=== PATIENT | female | born 1980 | race Caucasian/White ===

== ENCOUNTER → 2017-07-24 | Outpatient (CLI) | payer MEDICAID ==
[2017-07-24 18:11] LABS: ABSOLUTE EOSINOPHILS # (AUTO) 0.1 10^3/uL (0.0-0.6); ABSOLUTE LYMPHOCYTES (AUTO) 2.1 10^3/uL (0.5-4.7); ABSOLUTE MONOCYTES (AUTO) 0.9 10^3/uL (0.1-1.4); BASOPHILS % (AUTO) 0.1 % (0-2); EOSINOPHILS % (AUTO) 0.6 % (0-6); HEMATOCRIT 30.8 % (36.0-47.0); HEMOGLOBIN 10.7 g/dL (12.0-15.5); LYMPHOCYTES % (AUTO) 17.5 % (13-45); MEAN CORPUSCULAR HEMOGLOBIN 30.9 pg (27.0-33.4); MEAN CORPUSCULAR HGB CONC 34.7 g/dL (32.0-36.0); MEAN CORPUSCULAR VOLUME 89 fl (80-97); MONOCYTES % (AUTO) 7.5 % (3-13); PLATELET COUNT 232 10^3/uL (150-450); RED BLOOD COUNT 3.47 10^6/uL (3.72-5.28); RED CELL DISTRIBUTION WIDTH 12.6 % (11.5-14.0); SEGMENTED NEUTROPHILS % (AUTO) 74.3 % (42-78); TOTAL CELLS COUNTED % (AUTO) 100 %; WHITE BLOOD COUNT 12.2 10^3/uL (4.0-10.5)
[2017-07-24 18:30] LABS: ALANINE AMINOTRANSFERASE 34 U/L (9-52); ALBUMIN 3.3 g/dL (3.5-5.0); ALKALINE PHOSPHATASE 46 U/L (38-126); ANION GAP 8 (5-19); ASPARTATE AMINO TRANSFERASE 24 U/L (14-36); BLOOD UREA NITROGEN 12 mg/dL (7-20); CALCIUM 9.3 mg/dL (8.4-10.2); CARBON DIOXIDE 24 mmol/L (22-30); CHLORIDE 104 mmol/L (98-107); GLUCOSE 97 mg/dL (75-110); LDH 313 U/L (313-618); POTASSIUM 3.9 mmol/L (3.6-5.0); SODIUM 136.4 mmol/L (137-145); URIC ACID 4.1 mg/dL (2.5-7.0)
[2017-07-24 18:31] LABS: BILIRUBIN,DIRECT 0.2 mg/dL (0.0-0.4); BILIRUBIN,TOTAL < 0.1 mg/dL (0.2-1.3)
[2017-07-24 19:08] LABS: URINE PROTEIN 16.1 mg/dL (<12)
[2017-07-24 19:13] LABS: 24 HOUR URINE PROTEIN RESULT 469 mg/day (42-225)
[2017-07-24 19:55] LABS: CREATININE 0.52 mg/dL (0.52-1.25)
== END ==
LOC: OD 17:05
PROVIDERS: ATTEND Advanced Practice Midwife
DX: O13.9 Gestational [pregnancy-induced] hypertension without significant proteinuria, unspecified trimester (principal); Z13.0 Encounter for screening for diseases of the blood and blood-forming organs and certain disorders involving the immune mechanism; Z13.1 Encounter for screening for diabetes mellitus
CPT/HCPCS: 36415; 80053; 82575; 83615; 84156; 84550; 85025

== ENCOUNTER 2017-08-27 10:46 | Emergency (ER) | payer MEDICAID ==
[2017-08-27] MEDS ORDERED: METOCLOPRAMIDE HCL INJ/PF 10 MG/2 ML SDV IV ONE (11:23)
[2017-08-27] MEDS ORDERED: NORMAL SALINE 1000 ML 1,000 ML IV ONE (11:23)
[2017-08-27] MEDS ORDERED: DIPHENHYDRAMINE HCL 50 MG/ML VIAL IV ONE (11:23)
--- NOTE | 2017-08-27 11:25 | ER Document Report ---
ED Medical Screen (RME) - General Chief Complaint: Dizziness Stated Complaint: DIZZINESS Time Seen by Provider: 08/27/17 11:22 TRAVEL OUTSIDE OF THE [place] IN LAST 30 DAYS: No - HPI Notes: 08/27/17 11:24 Patient coming in with twins G5 with 3 kids at home presents today for acute onset of dizziness and nausea vomiting. Patient states history of preeclampsia. Patient proximally 9 weeks [facility] 08/27/17 11:25 No abdominal pain no vaginal spotting or bleeding or discharge - Related Data Allergies/Adverse Reactions: acetaminophen [From Percocet] Allergy (Verified 08/27/17 10:49) hydrocodone [From Vicodin] Allergy (Verified 08/27/17 10:49) oxycodone [From Percocet] Allergy (Verified 08/27/17 10:49) Past Medical History - Social History Chew tobacco use (# tins/day): No Frequency of alcohol use: None Drug Abuse: None Renal/ Medical History: Reports: Hx Kidney Stones. Denies: Hx Peritoneal Dialysis Review of Systems - Review of Systems Constitutional: Other - dizziness Gastrointestinal: Nausea Physical Exam - Vital signs Vitals: Temp Pulse Resp BP Pulse Ox 99.0 F 99 24 H 134/76 H 98 08/27/17 10:52 08/27/17 10:52 08/27/17 10:52 08/27/17 10:52 08/27/17 10:52 - Respiratory Respiratory status: No respiratory distress Chest status: Nontender Breath sounds: Normal Chest palpation: Normal Course - Vital Signs Vital signs: Temp Pulse Resp BP Pulse Ox 99.0 F 99 24 H 134/76 H 98 08/27/17 10:52 08/27/17 10:52 08/27/17 10:52 08/27/17 10:52 08/27/17 10:52
[2017-08-27] MEDS ORDERED: DIAZEPAM INJ 10 MG/2 ML DISP.SYRIN IV ONE (12:27)
--- NOTE | 2017-08-27 12:42 | ER Document Report ---
ED General - General Chief Complaint: Dizziness Stated Complaint: DIZZINESS Time Seen by Provider: 08/27/17 11:22 TRAVEL OUTSIDE OF THE [place] IN LAST 30 DAYS: No - HPI Notes: 36-year-old female 19 weeks who presents with vertigo symptoms. Patient woke this morning and had a sensation of motion. She developed some nausea and occasional vomiting. Limited when she moves her head. She has had no recent URI symptoms. No headache, no trauma. She is a history of preeclampsia with previous pregnancies but is unexplained symptoms with this . Again denies headache. No fever, chills or sweats. No chest pain, no difficulty breathing. No numbness or tingling. No other neurologic complaints. No other modifying factors, no other associated symptoms, no other provocative or palliative factors. - Related Data Allergies/Adverse Reactions: acetaminophen [From Percocet] Allergy (Verified 08/27/17 10:49) hydrocodone [From Vicodin] Allergy (Verified 08/27/17 10:49) oxycodone [From Percocet] Allergy (Verified 08/27/17 10:49) Past Medical History - Social History Smoking Status: Current Every Day Smoker Chew tobacco use (# tins/day): No Frequency of alcohol use: None Drug Abuse: None Family History: Reviewed & Not Pertinent Patient has suicidal ideation: No Patient has homicidal ideation: No - Medical History Medical History: Other - Includes current , previous history of preeclampsia Renal/ Medical History: Reports: Hx Kidney Stones. Denies: Hx Peritoneal Dialysis Review of Systems - Review of Systems Notes: Review of systems as in the history of present illness, otherwise negative. Physical Exam - Vital signs Vitals: Temp Pulse Resp BP Pulse Ox 99.0 F 99 24 H 134/76 H 98 08/27/17 10:52 08/27/17 10:52 08/27/17 10:52 08/27/17 10:52 08/27/17 10:52 - Notes Notes: General: Well developed, well nourished. HEENT: Normocephalic, atraumatic. PEERL. No conjunctival injection. Neck: Supple, no significant adenopathy. No meningismus. Chest: Clear bilaterally, good air entry. Abdomen: Soft, non-tender, nondistended. Back: Non-tender. Normal ROM Extremities: No cyanosis, clubbing or edema. Vascular: Symmetric peripheral pulses, normal capillary refill. Skin: No significant rash. No petechiae or purpura. Motor: Normal tone and power. Symmetric. Neurologic: Alert and oriented to person place and time. Cranial nerves II-12 are intact. Sensation intact and symmetric in the upper and lower extremities. No cerebellar findings including finger-nose testing. No clonus. Gait normal. Funduscopic exam shows crisp disc margins, no evidence of papilledema. Course - Re-evaluation Re-evalutation: 08/27/17 12:41 Well-appearing 36-year-old female presents with a story very suggestive of peripheral vertigo, no high-risk features or other findings that would suggest a central cause. I do not believe this is consistent with preeclampsia. She has no headache, no hyperreflexia, no visual changes. I am going to treat her with a single dose of IV Valium, antiemetics of already been given. I do not believe laboratory evaluation will be helpful at this point. Will recheck blood pressure, reassess. On reevaluation, the patient is resting comfortably, markedly improved. Blood pressure is 113/70. She is discharged home with prescription for meclizine, close outpatient follow-up. - Vital Signs Vital signs: Temp Pulse Resp BP Pulse Ox 98.3 F 86 24 H 121/58 L 98 08/27/17 13:39 08/27/17 13:39 08/27/17 10:52 08/27/17 13:39 08/27/17 13:39 - Laboratory Result Diagrams: 08/27/17 11:57 08/27/17 11:57 Discharge - Discharge Clinical Impression: Vertigo Condition: Good Disposition: HOME, SELF-CARE Instructions: Meclizine (OM), Vertigo (OM) Additional Instructions: See your primary care doctor over the next couple of days
[2017-08-27 13:46] VITALS: BP 121/58
== END 2017-08-27 13:46 | disposition home or self-care (01) ==
LOC: ER 10:46
DX: R42 Dizziness and giddiness (principal); R11.2 Nausea with vomiting, unspecified; Z3A.19 19 weeks gestation of pregnancy
CPT/HCPCS: 99284; 96361; 96374; 96375; J3360; J1200; J2765; J7030

== ENCOUNTER 2017-09-30 13:04 | Outpatient (CLI) | payer MEDICAID ==
[2017-09-30 13:44] LABS: ABSOLUTE EOSINOPHILS # (AUTO) 0.1 10^3/uL (0.0-0.6); ABSOLUTE LYMPHOCYTES (AUTO) 2.1 10^3/uL (0.5-4.7); ABSOLUTE MONOCYTES (AUTO) 0.9 10^3/uL (0.1-1.4); ABSOLUTE NEUT (AUTO) 10.6 10^3/uL (1.7-8.2); BASOPHILS % (AUTO) 0.1 % (0-2); EOSINOPHILS % (AUTO) 0.7 % (0-6); HEMATOCRIT 28.8 % (36.0-47.0); HEMOGLOBIN 10.3 g/dL (12.0-15.5); LYMPHOCYTES % (AUTO) 15.5 % (13-45); MEAN CORPUSCULAR HEMOGLOBIN 31.5 pg (27.0-33.4); MEAN CORPUSCULAR HGB CONC 35.6 g/dL (32.0-36.0); MEAN CORPUSCULAR VOLUME 88 fl (80-97); MONOCYTES % (AUTO) 6.7 % (3-13); PLATELET COUNT 235 10^3/uL (150-450); RED BLOOD COUNT 3.26 10^6/uL (3.72-5.28); RED CELL DISTRIBUTION WIDTH 12.6 % (11.5-14.0); TOTAL CELLS COUNTED % (AUTO) 100 %; WHITE BLOOD COUNT 13.7 10^3/uL (4.0-10.5)
[2017-09-30 14:04] LABS: ALANINE AMINOTRANSFERASE 25 U/L (9-52); ALBUMIN 3.5 g/dL (3.5-5.0); ALKALINE PHOSPHATASE 65 U/L (38-126); ANION GAP 12 (5-19); ASPARTATE AMINO TRANSFERASE 22 U/L (14-36); BILIRUBIN,DIRECT 0.1 mg/dL (0.0-0.4); BILIRUBIN,TOTAL 0.1 mg/dL (0.2-1.3); BLOOD UREA NITROGEN 9 mg/dL (7-20); CALCIUM 10.5 mg/dL (8.4-10.2); CARBON DIOXIDE 24 mmol/L (22-30); CHLORIDE 103 mmol/L (98-107); GLUCOSE 92 mg/dL (75-110); LDH 317 U/L (313-618); POTASSIUM 3.3 mmol/L (3.6-5.0); SODIUM 138.5 mmol/L (137-145); TOTAL PROTEIN 6.2 g/dL (6.3-8.2); URIC ACID 5.8 mg/dL (2.5-7.0)
--- NOTE | 2017-09-30 14:49 | L&D Progress Notes ---
PROGRESS NOTES Datetime Report Generated by CPN: 09/30/2017 14:49 PROGRESS NOTE Comment: BP's normal, K = 3.3, D/W Dr. Watson, no supplement, increase K enriched foods, tomatoes, potatoes, bananas, repeat in 1 week SIGNATURE SIGNATURE: [id number] Assignment: Marcial Watson MD Signature: with User ID: [email or web address] : with User ID: [email or web address]
[2017-09-30 14:50] LABS: UR PRO/CREAT RATIO RESULT 0.7 mg/mg (0.0-0.2); URINE CREATININE 125.2 mg/dL (16-327); URINE PROTEIN 83.8 mg/dL (<12)
== END 2017-09-30 15:04 | disposition home or self-care (01) ==
LOC: LC 13:04
PROVIDERS: ATTEND Obstetrics & Gynecology Gynecology
PROC: 4A1HXCZ Monitoring of Products of Conception, Cardiac Rate, External Approach (ICD-10-PCS; principal; 2017-09-30)
DX: O09.522 Supervision of elderly multigravida, second trimester (principal); O99.282 Endocrine, nutritional and metabolic diseases complicating pregnancy, second trimester; E87.6 Hypokalemia; Z3A.24 24 weeks gestation of pregnancy
CPT/HCPCS: 36415; 80053; 82570; 83615; 84156; 84550; 85025

== ENCOUNTER 2017-10-14 16:41 | Outpatient (CLI) | payer MEDICAID ==
[2017-10-14] MEDS ORDERED: BETAMET ACET/BETAMET NA INJ 6 MG/1 ML IM ONE (16:51)
[2017-10-14] MEDS ORDERED: BETAMET ACET/BETAMET NA INJ 6 MG/1 ML ONE (16:56)
[2017-10-14 17:34] LABS: APPEARANCE,URINE SLIGHTLY-CLOUDY; BILIRUBIN,URINE NEGATIVE (NEGATIVE); COLOR,URINE YELLOW; GLUCOSE, URINE NEGATIVE (NEGATIVE); KETONES,URINE NEGATIVE (NEGATIVE); LEUKOCYTE ESTERASE,URINE NEGATIVE (NEGATIVE); NITRITE,URINE NEGATIVE (NEGATIVE); PROTEIN,URINE 100 mg/dL (NEGATIVE); URINE SPECIFIC GRAVITY 1.012; UROBILINOGEN,URINE NEGATIVE mg/dL (<2.0)
[2017-10-14 17:44] LABS: ABSOLUTE EOSINOPHILS # (AUTO) 0.1 10^3/uL (0.0-0.6); ABSOLUTE LYMPHOCYTES (AUTO) 2.6 10^3/uL (0.5-4.7); ABSOLUTE MONOCYTES (AUTO) 1.3 10^3/uL (0.1-1.4); ABSOLUTE NEUT (AUTO) 10.1 10^3/uL (1.7-8.2); BASOPHILS % (AUTO) 0.2 % (0-2); EOSINOPHILS % (AUTO) 0.6 % (0-6); HEMATOCRIT 26.9 % (36.0-47.0); HEMOGLOBIN 9.5 g/dL (12.0-15.5); LYMPHOCYTES % (AUTO) 18.2 % (13-45); MEAN CORPUSCULAR HEMOGLOBIN 31.5 pg (27.0-33.4); MEAN CORPUSCULAR HGB CONC 35.4 g/dL (32.0-36.0); MEAN CORPUSCULAR VOLUME 89 fl (80-97); MONOCYTES % (AUTO) 9.1 % (3-13); PLATELET COUNT 223 10^3/uL (150-450); RED BLOOD COUNT 3.02 10^6/uL (3.72-5.28); RED CELL DISTRIBUTION WIDTH 12.2 % (11.5-14.0); SEGMENTED NEUTROPHILS % (AUTO) 71.9 % (42-78); TOTAL CELLS COUNTED % (AUTO) 100 %; WHITE BLOOD COUNT 14.1 10^3/uL (4.0-10.5)
[2017-10-14 18:01] LABS: ALANINE AMINOTRANSFERASE 29 U/L (9-52); ALBUMIN 3.3 g/dL (3.5-5.0); ALKALINE PHOSPHATASE 65 U/L (38-126); ANION GAP 8 (5-19); ASPARTATE AMINO TRANSFERASE 27 U/L (14-36); BILIRUBIN,DIRECT 0.3 mg/dL (0.0-0.4); BILIRUBIN,TOTAL 0.3 mg/dL (0.2-1.3); BLOOD UREA NITROGEN 11 mg/dL (7-20); CALCIUM 9.5 mg/dL (8.4-10.2); CARBON DIOXIDE 28 mmol/L (22-30); CHLORIDE 102 mmol/L (98-107); GLUCOSE 76 mg/dL (75-110); LDH 337 U/L (313-618); POTASSIUM 3.2 mmol/L (3.6-5.0); SODIUM 138.2 mmol/L (137-145); TOTAL PROTEIN 5.9 g/dL (6.3-8.2); URIC ACID 6.5 mg/dL (2.5-7.0)
[2017-10-14 18:06] LABS: UR PRO/CREAT RATIO RESULT 0.7 mg/mg (0.0-0.2); URINE CREATININE 96.3 mg/dL (16-327); URINE PROTEIN 68.9 mg/dL (<12)
[2017-10-14 18:17] LABS: URINE AMPHETAMINES SCREEN NEGATIVE; URINE BARBITURATES SCREEN NEGATIVE; URINE BENZODIAZEPINES SCREEN NEGATIVE; URINE COCAINE SCREEN NEGATIVE; URINE MARIJUANA (THC) SCREEN NEGATIVE; URINE METHADONE SCREEN NEGATIVE; URINE PHENCYCLIDINE SCREEN NEGATIVE
== END 2017-10-14 18:35 | disposition home or self-care (01) ==
LOC: LC 16:41
PROVIDERS: ATTEND Student in an Organized Health Care Education/Training Program
PROC: 4A1HXCZ Monitoring of Products of Conception, Cardiac Rate, External Approach (ICD-10-PCS; principal; 2017-10-14)
DX: O09.522 Supervision of elderly multigravida, second trimester (principal); O16.2 Unspecified maternal hypertension, second trimester; Z3A.26 26 weeks gestation of pregnancy
CPT/HCPCS: 59899; 96372; 36415; 83615; 84156; 84550; 82570; 85025; 80053; 81001; 80307; J0702

== ENCOUNTER 2017-11-04 14:24 | Outpatient (CLI) | payer MEDICAID ==
[2017-11-04 15:23] LABS: ABSOLUTE BASOPHILS # (AUTO) 0.1 10^3/uL (0.0-0.2); ABSOLUTE EOSINOPHILS # (AUTO) 0.1 10^3/uL (0.0-0.6); ABSOLUTE LYMPHOCYTES (AUTO) 2.4 10^3/uL (0.5-4.7); ABSOLUTE NEUT (AUTO) 9.5 10^3/uL (1.7-8.2); BASOPHILS % (AUTO) 0.5 % (0-2); EOSINOPHILS % (AUTO) 0.4 % (0-6); HEMOGLOBIN 10.1 g/dL (12.0-15.5); LYMPHOCYTES % (AUTO) 18.7 % (13-45); MEAN CORPUSCULAR HEMOGLOBIN 32.4 pg (27.0-33.4); MEAN CORPUSCULAR HGB CONC 35.9 g/dL (32.0-36.0); MEAN CORPUSCULAR VOLUME 90 fl (80-97); MONOCYTES % (AUTO) 7.6 % (3-13); PLATELET COUNT 221 10^3/uL (150-450); SEGMENTED NEUTROPHILS % (AUTO) 72.8 % (42-78); TOTAL CELLS COUNTED % (AUTO) 100 %
[2017-11-04 15:39] LABS: APPEARANCE,URINE SLIGHTLY-CLOUDY; BILIRUBIN,URINE NEGATIVE (NEGATIVE); COLOR,URINE YELLOW; GLUCOSE, URINE NEGATIVE (NEGATIVE); KETONES,URINE NEGATIVE (NEGATIVE); LEUKOCYTE ESTERASE,URINE NEGATIVE (NEGATIVE); NITRITE,URINE NEGATIVE (NEGATIVE); PROTEIN,URINE 100 mg/dL (NEGATIVE); URINE SPECIFIC GRAVITY 1.011; UROBILINOGEN,URINE NEGATIVE mg/dL (<2.0)
[2017-11-04 15:40] LABS: ALANINE AMINOTRANSFERASE 22 U/L (9-52); ALBUMIN 3.1 g/dL (3.5-5.0); ALKALINE PHOSPHATASE 87 U/L (38-126); ANION GAP 9 (5-19); ASPARTATE AMINO TRANSFERASE 23 U/L (14-36); BILIRUBIN,DIRECT 0.2 mg/dL (0.0-0.4); BILIRUBIN,TOTAL 0.2 mg/dL (0.2-1.3); BLOOD UREA NITROGEN 8 mg/dL (7-20); CALCIUM 9.4 mg/dL (8.4-10.2); CARBON DIOXIDE 26 mmol/L (22-30); CHLORIDE 104 mmol/L (98-107); GLUCOSE 86 mg/dL (75-110); POTASSIUM 3.5 mmol/L (3.6-5.0); SODIUM 139.1 mmol/L (137-145); TOTAL PROTEIN 5.8 g/dL (6.3-8.2); URIC ACID 5.8 mg/dL (2.5-7.0)
[2017-11-04 15:42] LABS: URINE AMPHETAMINES SCREEN NEGATIVE; URINE BARBITURATES SCREEN NEGATIVE; URINE BENZODIAZEPINES SCREEN NEGATIVE; URINE COCAINE SCREEN NEGATIVE; URINE MARIJUANA (THC) SCREEN NEGATIVE; URINE METHADONE SCREEN NEGATIVE; URINE PHENCYCLIDINE SCREEN NEGATIVE
[2017-11-04 15:51] LABS: UR PRO/CREAT RATIO RESULT 1.2 mg/mg (0.0-0.2); URINE CREATININE 81.7 mg/dL (16-327); URINE PROTEIN 98.3 mg/dL (<12)
== END 2017-11-04 16:38 | disposition home or self-care (01) ==
LOC: LC 14:24
PROVIDERS: ATTEND Obstetrics & Gynecology
PROC: 4A1HXCZ Monitoring of Products of Conception, Cardiac Rate, External Approach (ICD-10-PCS; principal; 2017-11-04)
DX: O13.3 Gestational [pregnancy-induced] hypertension without significant proteinuria, third trimester (principal); Z3A.29 29 weeks gestation of pregnancy
CPT/HCPCS: 36415; 80053; 80307; 81001; 82570; 83615; 84156; 84550; 85025

== ENCOUNTER 2017-11-17 21:18 | Outpatient (CLI) | payer MEDICAID ==
[2017-11-17 21:58] LABS: APPEARANCE,URINE CLEAR; BILIRUBIN,URINE NEGATIVE (NEGATIVE); COLOR,URINE YELLOW; GLUCOSE, URINE NEGATIVE (NEGATIVE); KETONES,URINE NEGATIVE (NEGATIVE); LEUKOCYTE ESTERASE,URINE SMALL (NEGATIVE); NITRITE,URINE NEGATIVE (NEGATIVE); PROTEIN,URINE 100 mg/dL (NEGATIVE); URINE SPECIFIC GRAVITY 1.008; UROBILINOGEN,URINE NEGATIVE mg/dL (<2.0)
[2017-11-17 21:59] LABS: URINE AMPHETAMINES SCREEN NEGATIVE; URINE BARBITURATES SCREEN NEGATIVE; URINE BENZODIAZEPINES SCREEN NEGATIVE; URINE COCAINE SCREEN NEGATIVE; URINE MARIJUANA (THC) SCREEN NEGATIVE; URINE METHADONE SCREEN NEGATIVE; URINE PHENCYCLIDINE SCREEN NEGATIVE
== END 2017-11-17 23:02 | disposition home or self-care (01) ==
LOC: LC 21:18
PROVIDERS: ATTEND Obstetrics & Gynecology
PROC: 4A1HXCZ Monitoring of Products of Conception, Cardiac Rate, External Approach (ICD-10-PCS; principal; 2017-11-17)
DX: O47.03 False labor before 37 completed weeks of gestation, third trimester (principal); Z3A.31 31 weeks gestation of pregnancy
CPT/HCPCS: 80307; 81001

== ENCOUNTER 2017-11-23 19:57 | Outpatient (CLI) | payer MEDICAID ==
[2017-11-23 20:40] LABS: APPEARANCE,URINE SLIGHTLY-CLOUDY; BILIRUBIN,URINE NEGATIVE (NEGATIVE); COLOR,URINE YELLOW; GLUCOSE, URINE NEGATIVE (NEGATIVE); KETONES,URINE NEGATIVE (NEGATIVE); LEUKOCYTE ESTERASE,URINE LARGE (NEGATIVE); NITRITE,URINE NEGATIVE (NEGATIVE); PROTEIN,URINE 100 mg/dL (NEGATIVE); URINE SPECIFIC GRAVITY 1.011; UROBILINOGEN,URINE NEGATIVE mg/dL (<2.0)
[2017-11-23 20:52] LABS: URINE AMPHETAMINES SCREEN NEGATIVE; URINE BARBITURATES SCREEN NEGATIVE; URINE BENZODIAZEPINES SCREEN NEGATIVE; URINE COCAINE SCREEN NEGATIVE; URINE MARIJUANA (THC) SCREEN NEGATIVE; URINE METHADONE SCREEN NEGATIVE; URINE PHENCYCLIDINE SCREEN NEGATIVE
[2017-11-23] MEDS ORDERED: RINGERS SOLUTION,LACTATED 1,000 ML IV ONE (21:09)
[2017-11-23] MEDS ORDERED: LABETALOL HCL 200 MG TABLET PO ONE (21:09)
[2017-11-23] MEDS ORDERED: LABETALOL HCL 200 MG TABLET ONE (21:13)
[2017-11-23] MEDS ORDERED: PROMETHAZINE HCL INJ 25 MG/1 ML VIAL IV ONE (21:19)
[2017-11-23] MEDS ORDERED: HYDROXYZINE PAMOATE 50 MG CAPSULE PO ONE (21:19)
[2017-11-23] MEDS ORDERED: PROMETHAZINE HCL INJ 25 MG/1 ML VIAL ONE (21:22)
[2017-11-23] MEDS ORDERED: HYDROXYZINE PAMOATE 50 MG CAPSULE ONE (21:22)
== END 2017-11-23 22:49 | disposition home or self-care (01) ==
LOC: LC 19:57 → EDSTATUS 01-19 19:56
PROVIDERS: ATTEND Obstetrics & Gynecology
PROC: 4A1HXCZ Monitoring of Products of Conception, Cardiac Rate, External Approach (ICD-10-PCS; principal; 2017-11-23)
DX: O47.1 False labor at or after 37 completed weeks of gestation (principal); Z3A.39 39 weeks gestation of pregnancy
CPT/HCPCS: 59025; 87086; 81001; 80307; J3490 ×2; J2550

== ENCOUNTER 2017-12-02 13:13 | Inpatient (IN) | payer MEDICAID ==
--- NOTE | 2017-12-02 14:13 | Non Stress Test Report ---
Non Stress Test Datetime Report Generated by CPN: 12/02/2017 14:12 DEMOGRAPHIC EGA NST: 33.1 INDICATION Indication for Study: Other Indication for Study (NST) Other: lc/sent from med for chest pain MONITORING Monitor Explained: Monitor Explained; Test Explained; Patient Verbalized Understanding Time on Monitor: 12/02/2017 13:35 Time off Monitor: 12/02/2017 14:10 NST Duration: 35 NST INTERVENTIONS NST Interventions: PO Hydration; Reposition Patient Physician Notified NST: Dr Nascimento BABY A: [id number] BABY A Movement : Present Contraction Frequency : 0 FHR Baseline : 140 Accelerations : 15X15 Decelerations : None Variability : Moderate 6-25bpm NST Review: Meets Criteria for Reactive NST NST Review and Verified By : NELI Robles Results: Reactive BABY B Movement: Present FHR Baseline: 140 Accelerations: 15X15 Decelerations: None Variability: Moderate 6-25bpm NST Review: Meets Criteria for Reactive NST NST Results: Reactive NST REPORT Report Trigger: Send Report
[2017-12-02 14:33] LABS: APPEARANCE,URINE CLOUDY; BILIRUBIN,URINE NEGATIVE (NEGATIVE); GLUCOSE, URINE NEGATIVE (NEGATIVE); KETONES,URINE NEGATIVE (NEGATIVE); LEUKOCYTE ESTERASE,URINE LARGE (NEGATIVE); NITRITE,URINE NEGATIVE (NEGATIVE); PROTEIN,URINE 100 mg/dL (NEGATIVE); URINE SPECIFIC GRAVITY 1.013; UROBILINOGEN,URINE NEGATIVE mg/dL (<2.0)
[2017-12-02 14:34] LABS: COLOR,URINE YELLOW
[2017-12-02 14:44] LABS: URINE AMPHETAMINES SCREEN NEGATIVE; URINE BARBITURATES SCREEN NEGATIVE; URINE BENZODIAZEPINES SCREEN NEGATIVE; URINE COCAINE SCREEN NEGATIVE; URINE MARIJUANA (THC) SCREEN NEGATIVE; URINE METHADONE SCREEN NEGATIVE; URINE PHENCYCLIDINE SCREEN NEGATIVE
[2017-12-02 14:46] LABS: URINE CREATININE 117.5 mg/dL (16-327)
[2017-12-02 14:54] LABS: UR PRO/CREAT RATIO RESULT 2.3 mg/mg (0.0-0.2)
[2017-12-02 14:58] LABS: ABSOLUTE EOSINOPHILS # (AUTO) 0.1 10^3/uL (0.0-0.6); ABSOLUTE LYMPHOCYTES (AUTO) 2.3 10^3/uL (0.5-4.7); BASOPHILS % (AUTO) 0.4 % (0-2); EOSINOPHILS % (AUTO) 0.5 % (0-6); HEMATOCRIT 31.6 % (36.0-47.0); LYMPHOCYTES % (AUTO) 20.5 % (13-45); MEAN CORPUSCULAR HEMOGLOBIN 31.9 pg (27.0-33.4); MEAN CORPUSCULAR HGB CONC 34.6 g/dL (32.0-36.0); MEAN CORPUSCULAR VOLUME 92 fl (80-97); MONOCYTES % (AUTO) 8.5 % (3-13); PLATELET COUNT 173 10^3/uL (150-450); RED BLOOD COUNT 3.43 10^6/uL (3.72-5.28); SEGMENTED NEUTROPHILS % (AUTO) 70.1 % (42-78); TOTAL CELLS COUNTED % (AUTO) 100 %; WHITE BLOOD COUNT 11.3 10^3/uL (4.0-10.5)
[2017-12-02] MEDS ORDERED: ACETAMINOPHEN 325 MG TABLET ONE ×2 (15:05→15:10)
[2017-12-02] MEDS ORDERED: ACETAMINOPHEN 325 MG TABLET PO ONE (15:05)
[2017-12-02 15:25] LABS: ALBUMIN 2.8 g/dL (3.5-5.0); ANION GAP 7 (5-19); BLOOD UREA NITROGEN 9 mg/dL (7-20); CALCIUM 8.9 mg/dL (8.4-10.2); CARBON DIOXIDE 24 mmol/L (22-30); CHLORIDE 105 mmol/L (98-107); GLUCOSE 71 mg/dL (75-110); POTASSIUM 3.9 mmol/L (3.6-5.0); SODIUM 135.9 mmol/L (137-145); TOTAL PROTEIN 5.4 g/dL (6.3-8.2); URIC ACID 5.8 mg/dL (2.5-7.0)
[2017-12-02 15:26] LABS: ALANINE AMINOTRANSFERASE 20 U/L (9-52); ALKALINE PHOSPHATASE 114 U/L (38-126); ASPARTATE AMINO TRANSFERASE 28 U/L (14-36); BILIRUBIN,DIRECT 0.3 mg/dL (0.0-0.4); BILIRUBIN,TOTAL 0.3 mg/dL (0.2-1.3)
[2017-12-02] MEDS ORDERED: BETAMET ACET/BETAMET NA INJ 6 MG/1 ML ONE (16:41)
[2017-12-02] MEDS ORDERED: BETAMET ACET/BETAMET NA INJ 6 MG/1 ML IM ONE (16:41)
[2017-12-02] MEDS ORDERED: BUTALB/ACETAMINOPHEN/CAFFEINE 1 TAB EACH ONE (16:42)
[2017-12-02] MEDS ORDERED: BUTALB/ACETAMINOPHEN/CAFFEINE 1 TAB EACH PO ONE (16:42)
--- NOTE | 2017-12-02 16:59 | Admission Physical ---
Datetime Report Generated by CPN: 12/02/2017 16:59 CURRENT ADMISSION Chief Complaint: Signs/Symptoms Gestational HTN Indication for Induction: Not Applicable Admit Impression : , Intrauterine ; No Active Labor; Intact Membranes Admit Plan: Admit to Unit; Observation/Evaluation ALLERGIES Medication Allergies: Yes Medication Allergies: hydrocodone (10/14/2017); oxycodone (10/14/2017) Latex: No Latex Allergies OBSTETRICAL HISTORY EDC: 01/19/2018 00:00 : 5 Para: 4 Term: 4 : 0 SAB: 0 IAB: 0 Ectopic: 0 Livin Cesareans: 1 VBACs: 0 Multiple Births: 0 Gestational Diabetes: No Rh Sensitization: No Incompetent Cervix: No LATOYA: No Infertility: No ART Treatment: No Uterine Anomaly: No IUGR: No Hx Previous C/S: No Macrosomia: Yes Hx Loss/Stillborn: No PIH: Yes Hx : No Placenta Previa/Abruption: No Depression/PP Depression: No PTL/PROM: No Post Hemorrhage: No Current Procedures: Ultrasound; NST Obstetrical History Comments: G1: 1997 full term [id number] G2: 2000 full term 6lbs 7ozs G3: 2002 full term 7lbs 12 ozs G4: 2008 full term 8lbz 8oz C/S BREECH G5: current SEE RECORDS Alcohol: No Marijuana : No Cocaine: No Other Illicit Drugs: No Cigarettes: Current Some Day Smoker. 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 Heart Disease: No Hosp/Surgery: Yes Autoimmune Disorder: No Anesthetic Complications: No Kidney Disease: Yes Abnormal Pap Smear: No Neuro/Epilepsy: No Psychiatric Disorders: No Other Medical Diseases: No Hepatitis/Liver Disease: No Significant Family History: No Varicosities/Phlebitis: No Trauma/Violence : No Thyroid Dysfunction: No Medical History Comments: kidney stones, CHTN, GALLBLADDER REMOVED, C SECTION X1, DENTAL CARIES INFECTIOUS HISTORY Gonorrhea: No Genital Herpes: No Chlamydia: No Tuberculosis: No Syphilis: No Hepatitis: No HIV/AIDS Exposure: No Rash or Viral Illness: No HPV: No PHYSICAL EXAM General: Normal HEENT: Normal Neurologic: Normal Thyroid: Deferred Heart: Normal Lungs: Normal Breast: Deferred Back: Normal Abdomen: Normal Genitourinary Exam: Normal Extremities: Normal DTRs: Normal Pelvic Type: Adequate Vital Signs: Reviewed FETUS A EGA: 33.1 Monitoring: External US FHR- Baseline: 155 Variability: Moderate 6-25bpm Accelerations: 15X15 Decelerations: None Presentation: Vertex Admit Comment: 37yo at 33+1ega with DC/DA TIUP. Baby A 2047g, Baby B 2742g. Vtx/vtx. Pt with known CHTN and superimposed PreE. p:C ratio now 2.3 - will admit for monitoring and deliver for severe features. BPP 8/8 x 2. Twin A with proir imaging suspicious of VSD. Denies CP/SOB but reports increased swelling of LE. Tylenol given - will try fioricet for JI. If unable to improve JI and/or BPs uncontrolled plan for deivery as recommended by MFM. BMZ complete - give booster now. She desires repeat C/S with BTL. She is 100% that she has completed childbearing and desires permanent sterilization. Dr. Vickers aware FETUS B Monitoring: External US PLANS FOR LABOR AND DELIVERY Pain Management: Epidural; Spinal Feeding Preference: Formula Benefit of Breast Feed Discussed: Yes Circumcision: Yes INFORMED CONSENT Informed Consent Obtained: Section Delivery; Sterilization; Risks, Benefits and Alternatives Discussed Signature: with User ID: [email or web address]
[2017-12-02] MEDS ORDERED: RINGERS SOLUTION,LACTATED 1,000 ML IV PRN (17:18)
--- NOTE | 2017-12-02 18:34 | L&D Progress Notes ---
PROGRESS NOTES Datetime Report Generated by CPN: 12/02/2017 18:33 PROGRESS NOTE Impression: Eclampsia - Severe Plan: Deliver- Section Informed Consent Obtained: Section Delivery; Sterilization; Risks, Benefits and Alternatives Discussed Vital Signs : Reviewed Comment: Mild range BP's. however, JI now worsened and blurry vision worsened despite IVF and Despite tylenol and Fioricet. Pt with CHTN with Superimposed PreE and severe features with persistent neurological symptoms despite medications. Reviewed with patient and family re: concern and need for delivery. Case D/w Dr. Zazueta and Dr. Zazueta with [facility] recommended delivery for severe PreE (neurological features). Case also d/w Dr. Chacon who agrees with plan of care. FETUS A Presentation: Vertex SIGNATURE SIGNATURE: [id number];[id number];[id number] SIGNATURE: [id number];[id number];[id number] SIGNATURE: [id number];[id number] Signature: with User ID: [email or web address]
[2017-12-02 18:38] LABS: HEMATOCRIT 32.7 % (36.0-47.0); HEMOGLOBIN 11.2 g/dL (12.0-15.5); MEAN CORPUSCULAR HEMOGLOBIN 31.7 pg (27.0-33.4); MEAN CORPUSCULAR HGB CONC 34.3 g/dL (32.0-36.0); MEAN CORPUSCULAR VOLUME 92 fl (80-97); PLATELET COUNT 175 10^3/uL (150-450); RED BLOOD COUNT 3.55 10^6/uL (3.72-5.28); RED CELL DISTRIBUTION WIDTH 14.1 % (11.5-14.0); WHITE BLOOD COUNT 12.5 10^3/uL (4.0-10.5)
--- NOTE | 2017-12-02 18:45 | Brief Operative Note ---
BRIEF OPERATIVE REPORT DATE OF SURGERY: 12/02/17 TIME OF SURGERY: 20:00 PREOPERATIVE DIAGNOSIS: , DC/DA TIUP at 33+1ega, CHTN with Superimposed PreE, H/o C/s for Breech, Declines TOLAC. Undesired fertility. POSTOPERATIVE DIAGNOSIS: KATELYNN - delivered, Pelvic adhesions with omental adhesions SURGEON: JOSSY NAPIER FINDINGS: Baby A VMI delivered at 2003, Apgars 6/8, weight 4#6oz. Baby B VMI delivered at 2006, Apgars 8/9, weight 6#. Normal uterus except for severe adhesions of bladder to anterior uterine wall, normal bilateral fallopian tubes with filschie clips x 2 placed bilaterally. Omentum herniated through rectus muscles and adhesed to anterior abdominal wall and rectus fascia and also underlying uterus and bladder. Surgicel and Interceed placed due to severity of adhesive disease. IVF 1650ml, UOP 100ml COMPLICATIONS: Omental adhesions requiring resection ESTIMATED BLOOD LOSS: 1436ml for QBL TISSUE REMOVED OR ALTERED: placenta and cord x 2 - sent to pathology TECHNICAL PROCEDURE: Repeat section with BTL, Omental resection for hemostasis
[2017-12-02] MEDS ORDERED: CEFAZOLIN SODIUM 1 GM in DEXTROSE 5%-WATER 50 ML IV PRN (18:53)
[2017-12-02] MEDS ORDERED: GLUCAGON,HUMAN RECOMB 1 MG INJ SUBCUT PRN (18:53)
[2017-12-02] MEDS ORDERED: DEXTROSE 40% GEL 15 GM TUBE PO PRN ×2 (18:53)
[2017-12-02] MEDS ORDERED: DEXTROSE 50%-WATER 25 GM/50 ML DISP.SYRIN IV PRN ×2 (18:53)
[2017-12-02 18:56] LABS: ALANINE AMINOTRANSFERASE 26 U/L (9-52); ALKALINE PHOSPHATASE 126 U/L (38-126); ANION GAP 9 (5-19); ASPARTATE AMINO TRANSFERASE 30 U/L (14-36); BILIRUBIN,DIRECT 0.2 mg/dL (0.0-0.4); BILIRUBIN,TOTAL 0.3 mg/dL (0.2-1.3); BLOOD UREA NITROGEN 9 mg/dL (7-20); CALCIUM 8.8 mg/dL (8.4-10.2); CARBON DIOXIDE 22 mmol/L (22-30); CHLORIDE 105 mmol/L (98-107); GLUCOSE 77 mg/dL (75-110); POTASSIUM 3.9 mmol/L (3.6-5.0); SODIUM 135.7 mmol/L (137-145); TOTAL PROTEIN 5.7 g/dL (6.3-8.2)
[2017-12-02] MEDS ORDERED: OXYTOCIN 10 UNIT/ML VIAL ONE (19:03)
[2017-12-02] MEDS ORDERED: MIDAZOLAM 2 MG/2 ML INJ ONE (19:04)
[2017-12-02] MEDS ORDERED: ONDANSETRON HCL INJ/PF 4 MG/2 ML SDV ONE (19:04)
[2017-12-02] MEDS ORDERED: FENTANYL CITRATE INJ/PF 100 MCG/2 ML AMPUL ONE ×2 (19:04→23:00)
[2017-12-02] MEDS ORDERED: BUPIVACAINE HCL/DEX-WATER/PF 15 MG/2 ML AMPULE ONE (19:04)
[2017-12-02] MEDS ORDERED: EPHEDRINE SULFATE INJ 50 MG/1 ML AMPULE ONE (19:04)
[2017-12-02] MEDS ORDERED: OXYTOCIN/NORMAL SALINE 20 UNIT/1,000 ML RTUINJ ONE (19:04)
[2017-12-02] MEDS ORDERED: CEFAZOLIN 1 GM/D5W RTU 1 GM/50 ML RTUPB IV ONE (19:05)
[2017-12-02] MEDS ORDERED: CEFAZOLIN 2 GM/D5W RTU 2 GM/50 ML RTUPB IV ONE (19:06)
[2017-12-02] MEDS ORDERED: CITRIC ACID/SODIUM CITRATE ORAL SOLN 15 ML UDCUP ONE (19:06)
[2017-12-02] MEDS ORDERED: DIPHENHYDRAMINE HCL 50 MG/ML VIAL IV PRN (20:14)
[2017-12-02] MEDS ORDERED: MEPERIDINE HCL/PF INJ 25 MG/1 ML DISP.SYRIN IV PRN (20:14)
[2017-12-02] MEDS ORDERED: PROMETHAZINE HCL INJ 25 MG/1 ML VIAL IV PRN ×2 (20:14→23:42)
[2017-12-02] MEDS ORDERED: FENTANYL CITRATE INJ/PF 100 MCG/2 ML AMPUL IV PRN ×2 (20:14)
[2017-12-02] MEDS ORDERED: NALBUPHINE HCL INJ 10 MG/1 ML AMPULE IM ONE ×2 (20:16→21:38)
[2017-12-02] MEDS ORDERED: NALBUPHINE HCL INJ 10 MG/1 ML AMPULE ONE (21:52)
[2017-12-02] MEDS ORDERED: MAGNESIUM SULFATE 4 GM/100 ML RTUPB IV ONE ×2 (21:56→22:02)
[2017-12-02] MEDS ORDERED: MAGNESIUM SULFATE 20 GM/500 ML RTUINJ IV ONE (22:02)
[2017-12-02] MEDS: MORPHINE SULFATE 10 MG/ML INJ IV PRN ×3 (22:11→22:48)
[2017-12-02] MEDS ORDERED: MORPHINE SULFATE 10 MG/ML INJ ONE (22:11)
[2017-12-02] MEDS: MAGNESIUM SULFATE 20 GM/500 ML RTUINJ IV PRN (22:47)
[2017-12-02] MEDS: FENTANYL CITRATE INJ/PF 100 MCG/2 ML AMPUL IV PRN ×2 (23:00→23:16)
[2017-12-02] MEDS ORDERED: KETOROLAC TROMETHAMINE INJ/PF 30 MG/1 ML SDV ONE (23:38)
[2017-12-02] MEDS ORDERED: ACETAMINOPHEN 1,000 MG/100 ML RTUPB IV ONE (23:39)
[2017-12-02] MEDS ORDERED: HYDROMORPHONE HCL INJ/PF 2 MG/ML AMPULE ONE (23:39)
[2017-12-02] MEDS ORDERED: ACETAMINOPHEN 1,000 MG/100 ML RTUPB IV PRN (23:42)
[2017-12-02] MEDS ORDERED: MEASLES,MUMPS&RUBELLA VACC/PF 0.5 ML VIAL SUBCUT PRN (23:42)
[2017-12-02] MEDS ORDERED: ACETAMINOPHEN 325 MG TABLET PO PRN (23:42)
[2017-12-02] MEDS ORDERED: OXYTOCIN/NORMAL SALINE 20 UNIT/1,000 ML RTUINJ IV PRN (23:42)
[2017-12-02] MEDS ORDERED: SIMETHICONE 80 MG TAB.CHEW PO PRN (23:42)
[2017-12-02] MEDS ORDERED: DIPH/PERTUSS(ACELL)/TETANUS VAC/PF 0.5 ML SYR (>=10YO) IM PRN (23:42)
--- NOTE | 2017-12-02 23:59 | Operative Report ---
Operative Report DATE OF SURGERY: 12/02/17 PREOPERATIVE DIAGNOSIS: , DC/DA TIUP at 33+1ega, CHTN with Superimposed PreE, H/o C/s for Breech, Declines TOLAC. Undesired fertility. POSTOPERATIVE DIAGNOSIS: KATELYNN - delivered, Pelvic adhesions with omental adhesions OPERATION: Repeat section with BTL, Omental resection for hemostasis SURGEON: JOSSY NAPIER ANESTHESIA: Spinal TISSUE REMOVED OR ALTERED: placenta and cord x 2 - sent to pathology COMPLICATIONS: None ESTIMATED BLOOD LOSS: 1436ml for QBL INTRAOPERATIVE FINDINGS: Baby A VMI delivered at 2003, Apgars 6/8, weight 4# 6oz. Baby B VMI delivered at 2006, Apgars 8/9, weight 6#. Normal uterus except for severe adhesions of bladder to anterior uterine wall, normal bilateral fallopian tubes with filschie clips x 2 placed bilaterally. Omentum herniated through rectus muscles and adhesed to anterior abdominal wall and rectus fascia and also underlying uterus and bladder. Surgicel and Interceed placed due to severity of adhesive disease. IVF 1650ml, UOP 100ml PROCEDURE: Anesthesia provider: [Dr. Beverly Shankar, David Rosado [employer]] Urine output: [100ml] IV fluids: [1650ml] Indications: [37yo at 33+1ega with DC/DA TIUP and CHTN with superimposed PreE and now with severe features. P:C ratio now 2.3 with known previous 24 hour UTP over 900mg. Patient with JI and blurry vision despite multiple methods of treatment and persistently elevated BPs. Reviewed case with M Dr. Zazueta who recommended delivery for severe features above. NICU provider also made aware due to infants. The patient has completed childbearing and strongly desires BTL. She was consented for Repeat C/S with BTL. THe risks/benefits/alternatives were reviewed and she desires to proceed with planned procedure.] Procedure: The patient was taken to the operating room where spinal anesthesia was obtained and found to be adequate. She was then prepped and draped in the normal sterile fashion and placed in the dorsal supine position with a leftward tilt. A Pfannenstiel skin incision was then made and carried through to the underlying layers of the fascia with the scalpel and the prior old incision excised. The fascia was incised in the midline and the incision extended laterally with the Sanchez scissors. The superior aspect of the fascial incision was then grasped with Waldemar clamps elevated and the underlying rectus muscles dissected off [sharply due to omental adhesions]. Attention was then turned to the inferior aspect of the fascial incision which in a similar fashion was grasped, tented up with Waldemar clamps, and the rectus muscles dissected off [ bluntly]. The rectus muscles were then in the midline and the peritoneum at the amount identified and entered [shraply]. The peritoneal incision was then extended superiorly and inferiorly with good visualization of the bladder. Cautery also used to assist with omental adhesions removal from anterior abdominal wall. The bladder blade was inserted and the vesicouterine peritoneum identified grasped with Ivorian pickups and entered sharply with the Metzenbaum scissors. This incision was then extended laterally with the Metzenbaum scissors and a bladder flap created digitally. The bladder blade was then reinserted and the lower uterine segment incised in a transverse fashion with the scalpel. The uterine incision was then extended bluntly. The bladder blade was removed and the infant's head was delivered from cephalic presentation atraumatically. The nose and mouth were suctioned and the cord doubly clamped and cut. And the infant was handed off to waiting pediatricians. AROM performed of Baby B amniotic sac with bloody amniotic fluid noted and delivered from cephalic presentation with loose nuchal cord and cord around left foot. The placentas were then delivered spontaneously with clot noted behind baby B placenta and the uterus exteriorized and cleared of all clots and debris. The uterine incision was then repaired with 1-0 Vicryl in a running locked fashion. A second layer of the same suture was used to obtain hemostasis via imbrication of the initial layer. The bladder flap was then repaired with 3-0 chromic in a running fashion. Each fallopian tube wa followed out to the fimbriated end and filschie clips were placed x 2 in the ampullary portion bilaterally. The uterus was returned to the patient's abdomen and Surgicel and Interceed was placed overlying the uterine incision to prevent adhesions. The omentum noted to have multiple holes from adhesive disease which required a portion of the omentum to be removed for hemostasis and decrease risk of intraabdominal contents herniating through omentum. This omentectomy was performed in the usual fashion with good hemostasis. The gutters were cleared of all clots and debris. All operative sites were noted to be hemostatic. The fascia was reapproximated with 0 Vicryl in a running fashion from each lateral edge to the midline. The skin was closed with 3-0 Monocryl in a running subcuticular fashion with overlying Dermabond for additional dressing as well as wound closure. The patient tolerated the procedure well. Sponge lap needle and instrument counts are correct times 2. 2 g of Ancef were given prior to skin incision. The patient was taken to the recovery area awake and in stable condition.
[2017-12-03] MEDS ORDERED: PROMETHAZINE HCL INJ 25 MG/1 ML VIAL ONE (00:48)
[2017-12-03] MEDS ORDERED: HYDROMORPHONE HCL INJ/PF 2 MG/ML AMPULE ONE ×2 (03:11→14:21)
[2017-12-03] MEDS: HYDROMORPHONE HCL INJ/PF 2 MG/ML AMPULE IV PRN ×3 (03:14→17:48)
[2017-12-03] MEDS: LABETALOL HCL 200 MG TABLET PO SCH ×3 (03:33→18:28)
[2017-12-03] MEDS ORDERED: HYDROXYZINE PAMOATE 50 MG CAPSULE ONE (05:06)
[2017-12-03] MEDS: IBUPROFEN 800 MG TABLET PO SCH ×3 (05:34→18:27)
[2017-12-03] MEDS ORDERED: HYDROXYZINE PAMOATE 50 MG CAPSULE PO ONE (05:57)
--- NOTE | 2017-12-03 07:00 | L&D Progress Notes ---
PROGRESS NOTES Datetime Report Generated by CPN: 12/03/2017 07:00 PROGRESS NOTE Informed Consent Obtained: Risks, Benefits and Alternatives Discussed Comment: Pt with intermittent severe range BPs pp and requiring IV meds and Labetolol 100mg po BID (home meds) restarted. may need to increase Labetolol. Increase DTRs but with adquate Diuresis. Plan for Mag sulfate until noon and then re-evaluate. May be able to discontinue at that time. Continue to monitor On L_D for now. FETUS C SIGNATURE: [id number];[id number];[id number] Signature: with User ID: [email or web address]
[2017-12-03] MEDS ORDERED: LABETALOL HCL 200 MG TABLET ONE ×2 (07:07→09:44)
[2017-12-03 07:34] LABS: HEMATOCRIT 32.8 % (36.0-47.0); HEMOGLOBIN 11.2 g/dL (12.0-15.5); MEAN CORPUSCULAR HEMOGLOBIN 31.8 pg (27.0-33.4); MEAN CORPUSCULAR HGB CONC 34.2 g/dL (32.0-36.0); MEAN CORPUSCULAR VOLUME 93 fl (80-97); PLATELET COUNT 196 10^3/uL (150-450); RED BLOOD COUNT 3.52 10^6/uL (3.72-5.28); RED CELL DISTRIBUTION WIDTH 14.2 % (11.5-14.0); WHITE BLOOD COUNT 21.1 10^3/uL (4.0-10.5)
[2017-12-03] MEDS ORDERED: KETOROLAC TROMETHAMINE INJ/PF 30 MG/1 ML SDV ONE (07:49)
[2017-12-03] MEDS: KETOROLAC TROMETHAMINE INJ/PF 30 MG/1 ML SDV IV SCH ×2 (07:58→19:25)
[2017-12-03] MEDS ORDERED: MAGNESIUM SULFATE 20 GM/500 ML RTUINJ IV ONE (08:09)
[2017-12-03] MEDS: MAGNESIUM SULFATE 20 GM/500 ML RTUINJ IV PRN (08:12)
[2017-12-03] MEDS ORDERED: PRENATAL VITAMIN W DHA CAPSULE PO ONE (09:43)
[2017-12-03] MEDS ORDERED: DOCUSATE SODIUM 100 MG CAPSULE ONE (09:44)
[2017-12-03] MEDS: DOCUSATE SODIUM 100 MG CAPSULE PO SCH ×2 (09:51→18:27)
[2017-12-03] MEDS: TRAMADOL HCL 50 MG TABLET PO PRN (09:51)
[2017-12-03] MEDS ORDERED: PRENATAL VITAMIN W DHA CAPSULE PO SCH (10:00)
[2017-12-03] MEDS ORDERED: NICOTINE 21 MG/24 HR PATCH.TD24 TD ONE (13:00)
[2017-12-03] MEDS ORDERED: IBUPROFEN 800 MG TABLET ONE (13:01)
[2017-12-04] MEDS: IBUPROFEN 800 MG TABLET PO SCH ×4 (00:25→17:34)
[2017-12-04] MEDS: TRAMADOL HCL 50 MG TABLET PO PRN ×4 (00:33→17:33)
[2017-12-04] MEDS: HYDROMORPHONE HCL INJ/PF 2 MG/ML AMPULE IV PRN (01:38)
[2017-12-04] MEDS: DOCUSATE SODIUM 100 MG CAPSULE PO SCH ×2 (09:55→17:35)
[2017-12-04] MEDS: LABETALOL HCL 200 MG TABLET PO SCH ×2 (09:58→17:34)
[2017-12-04] MEDS ORDERED: NICOTINE 21 MG/24 HR PATCH.TD24 TD SCH (10:00)
--- NOTE | 2017-12-04 10:14 | PDOC DISCHARGE SUMMARY ---
Final Diagnosis Discharge Date: 12/04/17 - Final Diagnosis (1) History of section Is this a current diagnosis for this admission?: Yes (2) Pre-eclampsia superimposed on chronic hypertension, antepartum Is this a current diagnosis for this admission?: Yes (3) S/P section Is this a current diagnosis for this admission?: Yes (4) Sterilization Is this a current diagnosis for this admission?: Yes (5) Twin , dichorionic/diamniotic, third trimester Is this a current diagnosis for this admission?: Yes Discharge Data - Discharge Medication Home Medications: Aspirin 81 mg PO DAILY 09/30/17 Pediatric Multivitamin No.76 [Flintstones Complete] 1 each PO BID 09/30/17 Labetalol HCl 200 mg PO BID 11/23/17 Reason(s) for Admission: Ceasarean Section-Repeat, Obstetric Complications, Twins Procedures: NST, Management of Obstetric Complications Intrapartum Procedure(s): : Low Cervical, Transverse, Tubal Ligation - Diagnosis Test Laboratory: Temp Pulse Resp BP Pulse Ox 97.7 F 65 18 133/67 H 96 12/04/17 04:37 12/04/17 04:37 12/04/17 04:37 12/04/17 04:37 12/04/17 04:37 12/02/17 12/02/17 12/02/17 13:45 14:42 18:20 RBC 3.43 L 3.55 L Hgb 11.0 L 11.2 L Hct 31.6 L 32.7 L Urine Opiates Screen NEGATIVE 12/03/17 07:08 RBC 3.52 L Hgb 11.2 L Hct 32.8 L Urine Opiates Screen - Discharge information/Instructions Discharge Activity: Balance Activity w/Rest, No Lifting Over 10 Pounds, No Lifting/Push/Pulling, Pelvic Rest, No tub bath Discharge Diet: Regular Disposition: HOME, SELF-CARE Follow up with: [facility] in: 5, Days
[2017-12-04 17:36] VITALS: BP 135/93
== END 2017-12-04 19:00 | disposition home or self-care (01) | DRG 765 ==
LOC: LC 13:13 → LR 16:11 → OBSVTOIN 16:11 → 2S 12-03 14:35
PROVIDERS: ADMIT Student in an Organized Health Care Education/Training Program; ATTEND Student in an Organized Health Care Education/Training Program
PROC: 10D00Z1 Extraction of Products of Conception, Low, Open Approach (ICD-10-PCS; principal; 2017-12-02)
PROC: 0UL70CZ Occlusion of Bilateral Fallopian Tubes with Extraluminal Device, Open Approach (ICD-10-PCS; 2017-12-02)
PROC: 0DBU0ZZ Excision of Omentum, Open Approach (ICD-10-PCS; 2017-12-02)
PROC: 4A1HXCZ Monitoring of Products of Conception, Cardiac Rate, External Approach (ICD-10-PCS; 2017-12-02)
PROC: 3E0234Z Introduction of Serum, Toxoid and Vaccine into Muscle, Percutaneous Approach (ICD-10-PCS; 2017-12-04)
DX: O11.4 Pre-existing hypertension with pre-eclampsia, complicating childbirth (principal); O31.8X32 Other complications specific to multiple gestation, third trimester, fetus 2; O69.82X2 Labor and delivery complicated by other cord entanglement, without compression, fetus 2; O67.8 Other intrapartum hemorrhage; O30.003 Twin pregnancy, unspecified number of placenta and unspecified number of amniotic sacs, third trimester; O99.89 Other specified diseases and conditions complicating pregnancy, childbirth and the puerperium; O30.043 Twin pregnancy, dichorionic/diamniotic, third trimester; N73.6 Female pelvic peritoneal adhesions (postinfective); O34.211 Maternal care for low transverse scar from previous cesarean delivery; O99.334 Smoking (tobacco) complicating childbirth; F17.210 Nicotine dependence, cigarettes, uncomplicated; Z90.49 Acquired absence of other specified parts of digestive tract; Z3A.33 33 weeks gestation of pregnancy; Z37.2 Twins, both liveborn; Z30.2 Encounter for sterilization; Z23 Encounter for immunization
CPT/HCPCS: 1961; 36415; 80053; 80307; 81001; 82570; 83615; 84156; 84550; 85025; 85027; 86850; 86900; 86901; 88307; 90715; 94760; 94799; 96372; J0131; J0690; J0702; J1170; J1885; J2250; J2270; J2300; J2405; J2550; J2590; J3010; J3475; J3490

== ENCOUNTER 2018-01-10 11:00 | Emergency (ER) | payer MEDICAID ==
--- NOTE | 2018-01-10 11:49 | ER Document Report ---
ED Medical Screen (RME) - General Chief Complaint: Vaginal Bleeding Stated Complaint: HEAVY VAGINAL BLEEDING Time Seen by Provider: 01/10/18 11:34 Mode of Arrival: Ambulatory Information source: Patient Notes: This is a 37-year-old female 1 month (twin gestations) who presents to the emergency room with sudden onset of painless vaginal bleeding. Patient states she woke in "pool of blood". She states she has changed her pad 6 times since. TRAVEL OUTSIDE OF THE [place] IN LAST 30 DAYS: No - Related Data Allergies/Adverse Reactions: hydrocodone [From Vicodin] Allergy (Verified 01/10/18 11:01) oxycodone [From Percocet] Allergy (Verified 01/10/18 11:01) Past Medical History - Social History Frequency of alcohol use: None Drug Abuse: None Renal/ Medical History: Reports: Hx Kidney Stones. Denies: Hx Peritoneal Dialysis Physical Exam - Vital signs Vitals: Temp Pulse Resp BP Pulse Ox 98.3 F 91 16 148/94 H 99 01/10/18 11:16 01/10/18 11:16 01/10/18 11:16 01/10/18 11:16 01/10/18 11:16 Course - Vital Signs Vital signs: Temp Pulse Resp BP Pulse Ox 98.3 F 91 16 148/94 H 99 01/10/18 11:16 01/10/18 11:16 01/10/18 11:16 01/10/18 11:16 01/10/18 11:16
[2018-01-10 12:30] LABS: ABSOLUTE EOSINOPHILS # (AUTO) 0.1 10^3/uL (0.0-0.6); ABSOLUTE LYMPHOCYTES (AUTO) 2.4 10^3/uL (0.5-4.7); ABSOLUTE MONOCYTES (AUTO) 0.5 10^3/uL (0.1-1.4); ABSOLUTE NEUT (AUTO) 3.9 10^3/uL (1.7-8.2); BASOPHILS % (AUTO) 0.4 % (0-2); EOSINOPHILS % (AUTO) 1.6 % (0-6); HEMATOCRIT 40.2 % (36.0-47.0); HEMOGLOBIN 13.9 g/dL (12.0-15.5); MEAN CORPUSCULAR HEMOGLOBIN 30.1 pg (27.0-33.4); MEAN CORPUSCULAR HGB CONC 34.7 g/dL (32.0-36.0); MEAN CORPUSCULAR VOLUME 87 fl (80-97); MONOCYTES % (AUTO) 6.6 % (3-13); PLATELET COUNT 298 10^3/uL (150-450); RED BLOOD COUNT 4.63 10^6/uL (3.72-5.28); RED CELL DISTRIBUTION WIDTH 13.8 % (11.5-14.0); SEGMENTED NEUTROPHILS % (AUTO) 56.4 % (42-78); TOTAL CELLS COUNTED % (AUTO) 100 %
[2018-01-10 12:47] LABS: ALANINE AMINOTRANSFERASE 46 U/L (9-52); ALBUMIN 4.2 g/dL (3.5-5.0); ALKALINE PHOSPHATASE 116 U/L (38-126); ANION GAP 7 (5-19); ASPARTATE AMINO TRANSFERASE 43 U/L (14-36); BILIRUBIN,DIRECT 0.4 mg/dL (0.0-0.4); BILIRUBIN,TOTAL 0.4 mg/dL (0.2-1.3); BLOOD UREA NITROGEN 15 mg/dL (7-20); CALCIUM 9.8 mg/dL (8.4-10.2); CARBON DIOXIDE 27 mmol/L (22-30); CHLORIDE 104 mmol/L (98-107); GLUCOSE 90 mg/dL (75-110); POTASSIUM 4.5 mmol/L (3.6-5.0); SODIUM 138.2 mmol/L (137-145); TOTAL PROTEIN 7.4 g/dL (6.3-8.2)
[2018-01-10 13:20] LABS: APPEARANCE,URINE SLIGHTLY-CLOUDY; BILIRUBIN,URINE NEGATIVE (NEGATIVE); COLOR,URINE RED; GLUCOSE, URINE NEGATIVE (NEGATIVE); KETONES,URINE NEGATIVE (NEGATIVE)
[2018-01-10 13:21] LABS: LEUKOCYTE ESTERASE,URINE SMALL (NEGATIVE); NITRITE,URINE NEGATIVE (NEGATIVE); PROTEIN,URINE 100 mg/dL (NEGATIVE); URINE SPECIFIC GRAVITY 1.016; UROBILINOGEN,URINE NEGATIVE mg/dL (<2.0)
[2018-01-10] MEDS ORDERED: RINGERS SOLUTION,LACTATED 1,000 ML IV ONE (13:25)
--- NOTE | 2018-01-10 13:53 | RADIOLOGY REPORT (SQ) ---
EXAM DESCRIPTION: U/S NON-OB PELVIS TV W/O DOP COMPLETED DATE/TIME: 01/10/2018 1:36 pm REASON FOR STUDY: bleeding COMPARISON: None. TECHNIQUE: Dynamic and static grayscale images acquired of the pelvis via transvaginal approach and recorded on PACS. Additional selected color Doppler and spectral images recorded. LIMITATIONS: None. FINDINGS: UTERUS: Contour normal. 2.5 cm uterine nodularity deep to the anterior scar, th is area shows some internal vascularity on Doppler interrogation, possible granuloma formation, retai laina products cannot be excluded. ENDOMETRIAL STRIPE: No focal or generalized thickening. No masses. CERVIX: No nabothian cysts. RIGHT OVARY AND DOPPLER: Normal size. No worrisome masses. Normal arterial vascular flow without evid ence for torsion. LEFT OVARY AND DOPPLER: Ovary not visualized. FREE FLUID: Trace endocervical free fluid. OTHER: No other significant finding. MEASUREMENTS: UTERUS: 10.3 x 6.8 x 4.8 cm ENDOMETRIAL STRIPE: 1.2 cm RIGHT OVARY: 2.3 x 2 x 1.8 cm LEFT OVARY: Not visualized. IMPRESSION: 2.5 cm uterine nodularity deep to the anterior scar, this area shows some inte rnal vascularity on Doppler interrogation, possible granuloma formation, retained products cannot be excluded. TECHNICAL DOCUMENTATION: JOB ID: [id number] [id number] 2010 [employer]- All Rights Reserved Rev-09/06 Reading location - IP/workstation name: [email or web address]
--- NOTE | 2018-01-10 14:04 | ER Document Report ---
ED General - General Chief Complaint: Vaginal Bleeding Stated Complaint: HEAVY VAGINAL BLEEDING Time Seen by Provider: 01/10/18 11:34 Mode of Arrival: Ambulatory TRAVEL OUTSIDE OF THE [place] IN LAST 30 DAYS: No - HPI Patient complains to provider of: Vaginal bleeding Notes: Patient coming in for evaluation of vaginal bleeding. Patient recently gave approximately 1 month ago the twin pregnancies. Patient states woke up with heavy vaginal bleeding states going to approximate 6 pads an hour. Patient denies any fever chills nausea vomiting diarrhea denies abdominal cramping. Patient was company upon my evaluation. - Related Data Allergies/Adverse Reactions: hydrocodone [From Vicodin] Allergy (Verified 01/10/18 11:01) oxycodone [From Percocet] Allergy (Verified 01/10/18 11:01) Past Medical History - General Information source: Patient - Social History Smoking Status: Current Every Day Smoker Frequency of alcohol use: None Drug Abuse: None Family History: Reviewed & Not Pertinent Patient has suicidal ideation: No Patient has homicidal ideation: No Renal/ Medical History: Reports: Hx Kidney Stones. Denies: Hx Peritoneal Dialysis Review of Systems - Review of Systems Constitutional: No symptoms reported EENT: No symptoms reported Cardiovascular: No symptoms reported Respiratory: No symptoms reported Gastrointestinal: No symptoms reported Genitourinary: No symptoms reported Female Genitourinary: Vaginal bleeding Musculoskeletal: No symptoms reported Skin: No symptoms reported Hematologic/Lymphatic: No symptoms reported Neurological/Psychological: No symptoms reported -: Yes All other systems reviewed and negative Physical Exam - Vital signs Vitals: Temp Pulse Resp BP Pulse Ox 98.3 F 91 16 148/94 H 99 01/10/18 11:16 01/10/18 11:16 01/10/18 11:16 01/10/18 11:16 01/10/18 11:16 Interpretation: Normal - General General appearance: Appears well, Alert - HEENT Head: Normocephalic, Atraumatic Eyes: Normal Pupils: PERRL - Respiratory Respiratory status: No respiratory distress Chest status: Nontender Breath sounds: Normal Chest palpation: Normal - Cardiovascular Rhythm: Regular Heart sounds: Normal auscultation Murmur: No - Abdominal Inspection: Normal Distension: No distension Bowel sounds: Normal Tenderness: Nontender Organomegaly: No organomegaly - Back Back: Normal, Nontender - Extremities General upper extremity: Normal inspection, Nontender, Normal color, Normal ROM , Normal temperature General lower extremity: Normal inspection, Nontender, Normal color, Normal ROM , Normal temperature, Normal weight bearing. No: Christi's sign - Neurological Neuro grossly intact: Yes Cognition: Normal Orientation: AAOx4 Eugenie Coma Scale Eye Opening: Spontaneous Eugenie Coma Scale Verbal: Oriented Eugenie Coma Scale Motor: Obeys Commands [place] Coma Scale Total: 15 Speech: Normal Motor strength normal: LUE, RUE, LLE, RLE Sensory: Normal - Psychological Associated symptoms: Normal affect, Normal mood - Skin Skin Temperature: Warm Skin Moisture: Dry Skin Color: Normal Course - Re-evaluation Re-evalutation: 01/10/18 22:25 Hemoglobin hematocrit stable at this time. Ultrasound results were reviewed with [employer] on-call Dr. Harper who disagrees with retained products as the patient's beta-hCG is negative. More likely the first cycle after giving which according to Dr. Harper can be heavy at times. Patient otherwise asymptomatic no signs of symptomatic anemia or significant blood loss patient will be discharged home follow-up with [employer] - Vital Signs Vital signs: Temp Pulse Resp BP Pulse Ox 97.7 F 72 18 137/84 H 98 01/10/18 14:16 01/10/18 14:16 01/10/18 14:16 01/10/18 14:16 01/10/18 14:16 - Laboratory Result Diagrams: 01/10/18 12:04 01/10/18 12:04 Laboratory results interpreted by me: 01/10/18 01/10/18 12:04 12:32 AST 43 H Urine Protein 100 H Urine Blood MODERATE H Ur Leukocyte Esterase SMALL H Discharge - Discharge Clinical Impression: Vaginal bleeding Condition: Good Disposition: HOME, SELF-CARE Instructions: Vaginal Bleeding ([facility]) Additional Instructions: I discussed your results today with the [employer] on-call Dr. Harper who agrees that your vaginal bleeding more likely is due to having her first menstrual cycle after with most time does involve significant heavy bleeding recommends Tylenol Motrin for pain control follow-up in their office. Please call your office today to schedule follow-up appointment return to ER symptoms worsen Prescriptions: Ibuprofen [Motrin 600 mg Tablet] 600 mg PO Q8HP PRN #21 tablet PRN Reason:
[2018-01-10 14:20] VITALS: BP 137/84
== END 2018-01-10 14:20 | disposition home or self-care (01) ==
LOC: ER 11:00
DX: N93.8 Other specified abnormal uterine and vaginal bleeding (principal)
CPT/HCPCS: 36415; 76830; 80053; 81001; 84702; 85025; 99284

== ENCOUNTER 2019-03-25 19:27 | Emergency (ER) | payer BC, MEDICAID ==
--- NOTE | 2019-03-25 20:52 | ER Document Report ---
HPI - HPI Time Seen by Provider: 03/25/19 20:46 Pain Level: 5 Notes: Patient is a 38-year-old female who presents complaining of bilateral ear pain left worse on the right, nasal congestion/discharge, occasional dry cough over the past couple days. She is able to eat and drink without difficulty. The pain does radiate down into her jaw and neck area from her ears. She is urinating normally and having normal bowel movements. No other concerns or complaints. Denies any headache, fever, neck pain, sore throat, chest pain, palpitations, syncope, shortness of breath, wheeze, dyspnea, abdominal pain, nausea/vomiting/diarrhea, urinary retention, dysuria, hematuria, or rash. - ROS Systems Reviewed and Negative: Yes All other systems reviewed and negative - REPRODUCTIVE Reproductive: DENIES: : Past Medical History - Social History Smoking Status: Current Every Day Smoker Frequency of alcohol use: None Drug Abuse: None Family History: Reviewed & Not Pertinent Patient has suicidal ideation: No Patient has homicidal ideation: No Renal/ Medical History: Reports: Hx Kidney Stones. Denies: Hx Peritoneal Dialysis Vertical Provider Document - CONSTITUTIONAL Agree With Documented VS: Yes Notes: PHYSICAL EXAMINATION: GENERAL: Well-appearing, well-nourished and in no acute distress. A&Ox4. Answers questions appropriately. Moves comfortably w/o notable distress HEAD: Atraumatic, normocephalic. EYES: Pupils equal round and reactive to light, extraocular movements intact, sclera anicteric, conjunctiva are normal. ENT: EAC clear b/l. Lt TM bulging, erythema. Nares patent and with clear discharge. oropharynx no erythema without exudates. No tonsilar hypertrophy without erythema or exudate. No palatine shift. Uvula midline. No tongue protrusion. No drooling, hoarseness, or airway compromise. Moist mucous membranes. No sinus tenderness. NECK: Normal range of motion, supple without lymphadenopathy. No rigidity/meningismus. LUNGS: Breath sounds clear to auscultation bilaterally and equal. No wheezes rales or rhonchi. No retractions HEART: Regular rate and rhythm without murmurs, rubs, gallops. ABDOMEN: Soft, nontender, nondistended abdomen. No guarding, no rebound. Normal bowel sounds present. No CVA tenderness bilaterally. NEUROLOGICAL: Normal speech, normal gait. PSYCH: Normal mood, normal affect. SKIN: Warm, Dry, normal turgor, no rashes or lesions noted. - INFECTION CONTROL TRAVEL OUTSIDE OF THE [place] IN LAST 30 DAYS: No Course - Re-evaluation Re-evalutation: 03/25/19 20:50 Patient is an afebrile, well-hydrated, 38-year-old female who presents with acute otitis media of the left ear with URI. Vitals are acceptable without significant tachycardia, tachypnea, hypoxia. PE is otherwise unremarkable. Patient is nontoxic-appearing and is tolerating p.o. without difficulty. No labs or imaging warranted. Low suspicion for any sepsis, meningitis, severe dehydration, respiratory compromise, mastoiditis, or other systemic emergent condition at this time. Patient is aware that condition can change from initial presentation and she needs to monitor symptoms closely and seek medical attention with any acute changes. I will send her home with a prescription for amoxicillin. Recheck with your PCM this week. Consider consult with ENT. Return to the ED with any other worsening/concerning symptoms. Patient is in agreement. - Vital Signs Vital signs: Temp Pulse Resp BP Pulse Ox 97.5 F 103 H 20 145/92 H 98 03/25/19 20:01 03/25/19 20:01 03/25/19 20:01 03/25/19 20:01 03/25/19 20:01 Discharge - Discharge Clinical Impression: Acute otitis media, left, Acute URI Condition: Stable Disposition: HOME, SELF-CARE Instructions: Upper Respiratory Illness ([facility]) Additional Instructions: Maintain adequate fluid intake tylenol/ibuprofen as needed alternating every 3 hours for fever/body ache over the counter cold medication as needed for symptoms Humidified air may help Wash your hands regularly Wear a mask when coughing F/u: with your PCM in 2-3 days for a recheck Return to the ED with any fever, altered mental status/behavior, chest pain, palpitations, syncope, headache, neck pain/stiffness, shortness of breath, chest pains, wheezing, drooling, trouble swallowing/breathing, abdominal pain, n/v/d, rash, or worsening/concerning symptoms otherwise. Forms: Elevated Blood Pressure, Smoking Cessation Education, Return to Work Referrals: TOD RAYMOND DO [ASSOCIATE] - Follow up as needed
[2019-03-25 21:33] VITALS: BP 145/92
== END 2019-03-25 21:24 | disposition home or self-care (01) ==
LOC: ER 19:27
DX: H66.92 Otitis media, unspecified, left ear (principal); J06.9 Acute upper respiratory infection, unspecified; H92.03 Otalgia, bilateral; R09.81 Nasal congestion; R05 Cough; F17.200 Nicotine dependence, unspecified, uncomplicated
CPT/HCPCS: 99282

== ENCOUNTER 2019-09-15 21:06 | Emergency (ER) | payer SELFPAY ==
--- NOTE | 2019-09-15 21:54 | ER Document Report ---
ED Medical Screen (RME) - General Chief Complaint: Syncope Stated Complaint: SYNCOPE Time Seen by Provider: 09/15/19 21:49 Information source: Patient Notes: Patient states she was at work and felt dizzy and then had a syncopal episode. Episode was witnessed by coworkers. They assisted patient to a chair so that she did not injure herself when she passed out. Patient did have some nausea. Patient states she has been on a diet and last ate around 230. EMS checked patient's blood sugar which was 101 at the time. Patient presently denies any complaints or symptoms. I have greeted and performed a rapid initial assessment of this patient. A comprehensive ED assessment and evaluation of the patient, analysis of test results and completion of the medical decision making process will be conducted by additional ED providers. TRAVEL OUTSIDE OF THE [place] IN LAST 30 DAYS: No - Related Data Allergies/Adverse Reactions: hydrocodone [From Vicodin] Allergy (Verified 09/15/19 21:47) oxycodone [From Percocet] Allergy (Verified 09/15/19 21:47) Past Medical History - Social History Drug Abuse: None - Past Medical History Cardiac Medical History: Reports: Hx Hypertension Pulmonary Medical History: Reports: Hx Bronchitis Renal/ Medical History: Reports: Hx Kidney Stones. Denies: Hx Peritoneal Dialysis Past Surgical History: Reports: Hx Section Physical Exam - Vital signs Vitals: Temp Pulse Resp BP Pulse Ox 98.1 F 81 18 148/89 H 96 09/15/19 21:09 09/15/19 21:09 09/15/19 21:09 09/15/19 21:09 09/15/19 21:09 - Cardiovascular Rhythm: Regular Heart sounds: S1 appreciated, S2 appreciated - Neurological [place] Coma Scale Eye Opening: Spontaneous [place] Coma Scale Verbal: Oriented [place] Coma Scale Motor: Obeys Commands Eugenie Coma Scale Total: 15 Course - Vital Signs Vital signs: Temp Pulse Resp BP Pulse Ox 98.1 F 88 18 142/90 H 97 09/15/19 21:48 09/15/19 21:16 09/15/19 21:09 09/15/19 21:16 09/15/19 21:16
--- NOTE | 2019-09-15 22:26 | RADIOLOGY REPORT (SQ) ---
EXAM DESCRIPTION: XR CHEST 1 VIEW COMPLETED DATE/TME: 09/15/2019 21:53 CLINICAL HISTORY: 38 years, Female, syncope COMPARISON: None. NUMBER OF VIEWS: 1 TECHNIQUE: Portable chest LIMITATIONS: None. FINDINGS: Heart size is normal. Mild elevation of the right hemidiaphragm. Lungs are clear. No pneumothorax IMPRESSION: Negative chest copyright 2010 [employer]- All Rights Reserved
[2019-09-15 22:53] VITALS: BP 132/71
[2019-09-15 23:29] LABS: ABSOLUTE BASOPHILS # (AUTO) 0.1 10^3/uL (0.0-0.2); ABSOLUTE EOSINOPHILS # (AUTO) 0.1 10^3/uL (0.0-0.6); ABSOLUTE LYMPHOCYTES (AUTO) 2.9 10^3/uL (0.5-4.7); ABSOLUTE MONOCYTES (AUTO) 0.7 10^3/uL (0.1-1.4); ABSOLUTE NEUT (AUTO) 4.4 10^3/uL (1.7-8.2); BASOPHILS % (AUTO) 0.7 % (0-2); EOSINOPHILS % (AUTO) 0.9 % (0-6); HEMATOCRIT 37.3 % (36.0-47.0); HEMOGLOBIN 13.2 g/dL (12.0-15.5); LYMPHOCYTES % (AUTO) 35.6 % (13-45); MEAN CORPUSCULAR HEMOGLOBIN 28.7 pg (27.0-33.4); MEAN CORPUSCULAR HGB CONC 35.4 g/dL (32.0-36.0); MEAN CORPUSCULAR VOLUME 81 fl (80-97); MONOCYTES % (AUTO) 8.7 % (3-13); PLATELET COUNT 247 10^3/uL (150-450); RED CELL DISTRIBUTION WIDTH 15.5 % (11.5-14.0); SEGMENTED NEUTROPHILS % (AUTO) 54.1 % (42-78); TOTAL CELLS COUNTED % (AUTO) 100 %; WHITE BLOOD COUNT 8.1 10^3/uL (4.0-10.5)
[2019-09-15 23:47] LABS: ALBUMIN 4.4 g/dL (3.5-5.0); ALKALINE PHOSPHATASE 120 U/L (38-126); ANION GAP 8 (5-19); ASPARTATE AMINO TRANSFERASE 44 U/L (14-36); BILIRUBIN,TOTAL 0.2 mg/dL (0.2-1.3); BLOOD UREA NITROGEN 15 mg/dL (7-20); CALCIUM 9.6 mg/dL (8.4-10.2); CARBON DIOXIDE 26 mmol/L (22-30); CHLORIDE 104 mmol/L (98-107); GLUCOSE 91 mg/dL (75-110); POTASSIUM 4.2 mmol/L (3.6-5.0); TOTAL PROTEIN 7.2 g/dL (6.3-8.2)
--- NOTE | 2019-09-16 07:35 | EKG REPORT ---
SEVERITY:- BORDERLINE ECG - SINUS RHYTHM BORDERLINE T ABNORMALITIES, ANTERIOR LEADS : Confirmed by: Kaz Cortés MD 16-Sep-2019 07:34:26
== END 2019-09-15 23:57 | disposition left against medical advice (07) ==
LOC: ER 21:06
DX: Z53.29 Procedure and treatment not carried out because of patient's decision for other reasons (principal); R55 Syncope and collapse; R42 Dizziness and giddiness; R11.0 Nausea; I10 Essential (primary) hypertension
CPT/HCPCS: 36415; 71045; 80053; 83735; 84484; 84703; 85025; 93005; 93010; 99281

== ENCOUNTER 2019-09-16 14:28 | Emergency (ER) | payer OTHER ==
--- NOTE | 2019-09-16 14:57 | ER Document Report ---
ED Medical Screen (RME) - General Chief Complaint: Near Syncope Stated Complaint: DIZZINESS Time Seen by Provider: 09/16/19 14:55 Mode of Arrival: Ambulatory Information source: Patient Notes: 38-year-old female presents to ED for complaint of dizziness today. She states she had a syncopal episode yesterday. She states yesterday she had spots before eyes blurred vision and her blood pressure was very high today she just continues to be dizzy and she does not know what is going on. She is alert oriented respirations regular and unlabored answering questions appropriately. Will repeat labs get a urine. I have greeted and performed a rapid initial assessment of this patient. A comprehensive ED assessment and evaluation of the patient, analysis of test results and completion of medical decision making process will be conducted by an additional ED providers. TRAVEL OUTSIDE OF THE [place] IN LAST 30 DAYS: No - Related Data Allergies/Adverse Reactions: hydrocodone [From Vicodin] Allergy (Verified 09/15/19 21:47) oxycodone [From Percocet] Allergy (Verified 09/15/19 21:47) Past Medical History - Past Medical History Cardiac Medical History: Reports: Hx Hypertension Pulmonary Medical History: Reports: Hx Bronchitis Renal/ Medical History: Reports: Hx Kidney Stones. Denies: Hx Peritoneal Dialysis Past Surgical History: Reports: Hx Section Physical Exam - Vital signs Vitals: Temp Pulse Resp BP Pulse Ox 98.4 F 104 H 18 155/99 H 96 09/16/19 14:35 09/16/19 14:35 09/16/19 14:35 09/16/19 14:35 09/16/19 14:35 Course - Vital Signs Vital signs: Temp Pulse Resp BP Pulse Ox 98.4 F 104 H 18 155/99 H 96 09/16/19 14:35 09/16/19 14:35 09/16/19 14:35 09/16/19 14:35 09/16/19 14:35
--- NOTE | 2019-09-16 15:30 | ER Document Report ---
ED Dizziness/Weakness - General Chief Complaint: Near Syncope Stated Complaint: DIZZINESS Time Seen by Provider: 09/16/19 14:55 Mode of Arrival: Ambulatory Notes: 38-year-old woman presenting to the emergency department with complaints of feeling heaviness in her extremities and a dizziness and imbalance at times. Sh e states symptoms began last night while she was at work. She denies a history of similar episodes in the past. She denies chest pain, shortness of breath or palpitations. He also denies fever, cough, or back pain. She has a 19-month old twins at home, history of hypertension has not been on any medications for the past 18 months, history of gestational diabetes, presently taking no medications. TRAVEL OUTSIDE OF THE [place] IN LAST 30 DAYS: No - Related Data Allergies/Adverse Reactions: hydrocodone [From Vicodin] Allergy (Verified 09/15/19 21:47) oxycodone [From Percocet] Allergy (Verified 09/15/19 21:47) Home Medications: denies Past Medical History - General Information source: Patient - Social History Smoking Status: Current Every Day Smoker Chew tobacco use (# tins/day): No Frequency of alcohol use: Rare Drug Abuse: None Family History: Reviewed & Not Pertinent Patient has homicidal ideation: No - Past Medical History Cardiac Medical History: Reports: Hx Hypertension Pulmonary Medical History: Reports: Hx Bronchitis Renal/ Medical History: Reports: Hx Kidney Stones. Denies: Hx Peritoneal Dialysis Past Surgical History: Reports: Hx Section Review of Systems - Review of Systems Notes: Constitutional: Negative for fever. HENT: Negative for sore throat. Eyes: Negative for visual changes. Cardiovascular: Negative for chest pain. Respiratory: Negative for shortness of breath. Gastrointestinal: Negative for abdominal pain, vomiting or diarrhea. Genitourinary: Negative for dysuria. Musculoskeletal: Negative for back pain. Skin: Negative for rash. Neurological: + Dizziness, + weakness. 10 point ROS negative except as marked above and in HPI. Physical Exam - Vital signs Vitals: Temp Pulse Resp BP Pulse Ox 98.4 F 104 H 18 155/99 H 96 09/16/19 14:35 09/16/19 14:35 09/16/19 14:35 09/16/19 14:35 09/16/19 14:35 - Notes Notes: PHYSICAL EXAMINATION: Physical Exam: General: Well-nourished well-developed 38-year-old woman in no acute distress HEENT: NC/AT, pupils equal round and reactive to light, MM moist,nares clear, oropharynx clear, airway patent Neck: supple, no adenopathy, no masses. Good range of motion Lungs: clear, no wheezing, no rales no rhonchi CVS: Regular rate and rhythm no murmur gallop or rub Abdomen: Soft, active, nontender, no masses, no hepatosplenomegaly Ext: No edema, clubbing or cyanosis. Neuro: Alert and responsive, moving all 4 extremities on command, cranial nerves intact, no focal findings Skin: Intact no open lesions, no rash PSYCH: Normal mood, normal affect. Course - Vital Signs Vital signs: Temp Pulse Resp BP Pulse Ox 98.4 F 63 21 H 148/97 H 98 09/16/19 14:56 09/16/19 15:51 09/16/19 17:00 09/16/19 16:12 09/16/19 17:00 - Laboratory Result Diagrams: 09/16/19 15:00 09/16/19 15:00 Laboratory results interpreted by me: 09/16/19 09/16/19 09/16/19 15:00 15:00 15:01 RDW 15.7 H AST 46 H ALT 77 H Urine Blood MODERATE H I have reviewed laboratory data and used this information for the treatment decisions regarding the patient. - Diagnostic Test Radiology reviewed: Image reviewed, Reports reviewed - CT scan head: No acute intracranial findings. Discharge - Discharge Clinical Impression: Dizziness, Vertigo Condition: Good Disposition: HOME, SELF-CARE Instructions: Vertigo ([facility]) Additional Instructions: You are seen in the emergency department tonight with dizziness and balance. The symptoms are likely related to an inner ear problem and not related to blood flow or stroke problem. You are being treated with meclizine and a steroid. You should drink plenty of fluids and rest at home. You are given a work excuse for the next 48 hours. If his symptoms are not improving or if his symptoms are worsening you may return to the emergency department for further evaluation and treatment. HOME CARE INSTRUCTIONS & INFORMATION: Thank you for choosing us for your me dical needs. We hope you're satisfied with the care you received. After you leave, you must properly care for your problem and, at the same time, observe its progress. Any condition can change. Some illnesses can change rapidly over hours or days. If your condition worsens, return to the Emergency Department or see your physician promptly. ABOUT YOUR X-RAYS AND EKG'S: If you had an EKG or X-rays taken, they have been read by the Emergency Physician. The X-rays and EKG's will also be read by a Radiologist or Residential Aide within 24 hours. If discrepancies are noted, you will be notified by telephone. Please be certain the ED has a correct telephone number & address where you can be reached. Also, realize that some fractures or abnormalities do not show up on initial X-rays. If your symptoms continue, see your physician. ABOUT YOUR LABORATORY TEST: If you had laboratory tests, the results have been reviewed by the Emergency Physician. Some test results (for example cultures) may not be available for several days. You will be contacted if any test result shows you need additional treatment. Please be certain the ED has a correct telephone number and address where you can be reached. ABOUT YOUR MEDICATIONS: You will receive instructions on how to take your medicine on the prescription label you receive. Additional information may be provided by the Pharmacy. If you have questions afterwards, call the ED for clarification or further instructions. Some prescribed medications may cause drowsiness. Do not perform tasks such as driving a car or operating machinery without consulting your Pharmacist. If you feel you need a refill of pain medication, your condition will need re-evaluation. Please do not call for a refill of any medication. ABOUT YOUR SIGNATURE: Signature of this document acknowledges to followin. Understanding that you received emergency treatment and that you may be released before al medical problems are known or treated. Please be certain the ED has a correct phone number & address where you can be reached. 2. Acknowledgement that you will arrange for follow-up care as recommended. 3. Authorization for the Emergency Physician to provide information to your follow-up Physician in order to maximize your care. AT ANY TIME, IF YOUR SYMPTOMS CHANGE SIGNIFICANTLY OR WORSEN OR YOU DEVELOP NEW SYMPTOMS, RETURN TO THE EMERGENCY DEPARTMENT IMMEDIATELY FOR RE-EVALUATION. OUR GOAL IS TO PROVIDE EXCELLENT MEDICAL CARE! WE HOPE THAT WE HAVE MET YOUR EXPECTATIONS DURING YOUR EMERGENCY DEPARTMENT VISIT AND THAT YOU FEEL YOU HAVE RECEIVED EXCELLENT CARE! Prescriptions: Meclizine HCl [Antivert 25 mg Tablet] 25 mg PO TID PRN #21 tablet PRN Reason: Prednisone [Deltasone 20 mg Tablet] 1 tab PO BID 5 Days #6 tablet Forms: Return to Work
[2019-09-16] MEDS ORDERED: NORMAL SALINE 1000 ML 1,000 ML IV ONE (15:33)
[2019-09-16 15:41] LABS: ABSOLUTE EOSINOPHILS # (AUTO) 0.1 10^3/uL (0.0-0.6); ABSOLUTE LYMPHOCYTES (AUTO) 2.4 10^3/uL (0.5-4.7); ABSOLUTE MONOCYTES (AUTO) 0.7 10^3/uL (0.1-1.4); ABSOLUTE NEUT (AUTO) 4.5 10^3/uL (1.7-8.2); BASOPHILS % (AUTO) 0.4 % (0-2); HEMATOCRIT 38.6 % (36.0-47.0); HEMOGLOBIN 13.1 g/dL (12.0-15.5); MEAN CORPUSCULAR HEMOGLOBIN 27.7 pg (27.0-33.4); MEAN CORPUSCULAR VOLUME 81 fl (80-97); MONOCYTES % (AUTO) 8.5 % (3-13); PLATELET COUNT 252 10^3/uL (150-450); RED BLOOD COUNT 4.74 10^6/uL (3.72-5.28); RED CELL DISTRIBUTION WIDTH 15.7 % (11.5-14.0); SEGMENTED NEUTROPHILS % (AUTO) 59.1 % (42-78); TOTAL CELLS COUNTED % (AUTO) 100 %; WHITE BLOOD COUNT 7.7 10^3/uL (4.0-10.5)
[2019-09-16 15:43] LABS: APPEARANCE,URINE SLIGHTLY-CLOUDY; BILIRUBIN,URINE NEGATIVE (NEGATIVE); COLOR,URINE YELLOW; GLUCOSE, URINE NEGATIVE (NEGATIVE); KETONES,URINE NEGATIVE (NEGATIVE); LEUKOCYTE ESTERASE,URINE NEGATIVE (NEGATIVE); NITRITE,URINE NEGATIVE (NEGATIVE); PROTEIN,URINE NEGATIVE (NEGATIVE); UROBILINOGEN,URINE NEGATIVE mg/dL (<2.0)
[2019-09-16 16:00] LABS: URINE AMPHETAMINES SCREEN NEGATIVE; URINE BARBITURATES SCREEN NEGATIVE; URINE BENZODIAZEPINES SCREEN NEGATIVE; URINE COCAINE SCREEN NEGATIVE; URINE MARIJUANA (THC) SCREEN NEGATIVE; URINE METHADONE SCREEN NEGATIVE; URINE PHENCYCLIDINE SCREEN NEGATIVE
[2019-09-16 16:01] LABS: ALBUMIN 4.3 g/dL (3.5-5.0); ALKALINE PHOSPHATASE 119 U/L (38-126); ANION GAP 6 (5-19); ASPARTATE AMINO TRANSFERASE 46 U/L (14-36); BILIRUBIN,TOTAL 0.2 mg/dL (0.2-1.3); BLOOD UREA NITROGEN 14 mg/dL (7-20); CALCIUM 9.4 mg/dL (8.4-10.2); CARBON DIOXIDE 27 mmol/L (22-30); CHLORIDE 104 mmol/L (98-107); CREATINE KINASE 54 U/L (30-135); GLUCOSE 97 mg/dL (75-110); TOTAL PROTEIN 7.2 g/dL (6.3-8.2)
[2019-09-16 16:10] LABS: CREATINE KINASE MB 0.33 ng/mL (<4.55)
[2019-09-16 16:14] LABS: TROPONIN I < 0.012 ng/mL
[2019-09-16 16:20] LABS: FREE T3 3.87 pg/mL (2.77-5.27); FREE T4 (FREE THYROXINE) 1.06 ng/dL (0.78-2.19)
[2019-09-16 16:33] LABS: THYROID STIMULATING HORMONE 0.49 uIU/mL (0.47-4.68)
--- NOTE | 2019-09-16 17:02 | RADIOLOGY REPORT (SQ) ---
EXAM DESCRIPTION: CT HEAD WITHOUT IMAGES COMPLETED DATE/TIME: 09/16/2019 4:48 pm REASON FOR STUDY: Dizziness COMPARISON: None. TECHNIQUE: Axial images acquired through the brain without intravenous contrast. Images reviewed wi th bone, brain and subdural windows. Additional sagittal and coronal reconstructions were generated. Images stored on PACS. All CT scanners at this facility use dose modulation, iterative reconstruction, and/or weight based d osing when appropriate to reduce radiation dose to as low as reasonably achievable (ALARA). [facility]: Dose Right [facility]: CareDose [facility]: Dose Right [facility]: Teradose 4D [facility]: Storwize RADIATION DOSE: CT Rad equipment meets quality standard of care and radiation dose reduction techniq ues were employed. CTDIvol: 53.2 mGy. DLP: 1017 mGy-cm. LIMITATIONS: None. FINDINGS: There is acute intracranial hemorrhage, vascular territorial infarct, extra-axial fluid co llection, mass effect or midline shift. The rg-white matter differentiation is preserved. There i s no effacement of cerebral sulci or basal subarachnoid cisterns. The caliber of the ventricles is c oncordant with the degree of sulcation. The orbits and globes are intact. There is a mucous retention cyst within the left maxillary sinus. The other paranasal sinuses are clear. There is no fracture of the calvarium. IMPRESSION: No acute intracranial abnormality. EVIDENCE OF ACUTE STROKE: NO. COMMENT: Quality ID # [id number]: Final reports with documentation of one or more dose reduction techniques (e.g., Automated exposure control, adjustment of the mA and/or kV according to patient size, use of iterative reconstruction technique) TECHNICAL DOCUMENTATION: JOB ID: [id number] 2010 [employer]- All Rights Reserved Reading location - IP/workstation name: [email or web address] WORKER-REPLACED BY [facility]
[2019-09-16] MEDS ORDERED: DEXAMETHASONE SOD PHOS INJ 10 MG/1 ML VIAL IV ONE (18:15)
[2019-09-16] MEDS ORDERED: MECLIZINE HCL 25 MG TABLET PO ONE (18:15)
[2019-09-16 18:28] VITALS: BP 123/79
== END 2019-09-16 18:38 | disposition home or self-care (01) ==
LOC: ER 14:28
DX: R55 Syncope and collapse (principal); R42 Dizziness and giddiness; F17.200 Nicotine dependence, unspecified, uncomplicated; Z88.6 Allergy status to analgesic agent; Z87.442 Personal history of urinary calculi
CPT/HCPCS: 99284; 96361; 96374; 36415; 84439; 82553; 82550; 84443; 85025; 80053; 81001; 84484; 80307; 84481; 70450; J7030; J1100